=== PATIENT | male | born 1975 | race African-American/Black ===

== ENCOUNTER 2017-01-05 20:02 | Emergency (ER) | payer OTHER ==
[~2017-01-05] VITALS: Ht 185.4 cm; Wt 122.5 kg
[~2017-01-05 20:02] MED LIST: AMLODIPINE BESY10 MG PO; AMLODIPINE BESYL5 M1 PO; ANUSOL-HC25 MG RECTAL; ASA81BEC PO; ASPIRIN81 M2 PO; CLONIDINE0.1 PO; CORTISPORIN-TC10 ML OTIC; HYDROCHLOROTHIA25 M2 PO; HYDROCODONE-AP1 EAC6 PO; K-DUR10 MEQ PO; KLOR-CON 1010 MEQ PO; LABETALOL HCL100 MG PO; LISINOPRIL40 MG PO; LOSARTAN POTAS100 MG PO; METOPROLOL SUC100 MG PO; NEXIUM40 MG; PRINIVIL20 MG PO; PROTONIX 20 MG20 M1 PO; TRADJENTA5 MG PO; ZESTORETIC 20-1 EAC3 PO
[2017-01-05] MEDS ORDERED: PROTONIX 20 MG20 M1 PO (20:40)
[2017-01-05] MEDS ORDERED: ACCUNEB SO1.25 MG/1 INH (20:40)
[2017-01-05] MEDS ORDERED: BETA CAROTEN25000 IU PO (20:40)
[2017-01-05] MEDS ORDERED: TIZANIDINE HCL4 MG PO (22:13)
[2017-01-05] MEDS ORDERED: IBUPROFEN 600600 M1 PO (22:13)
[2017-01-05 22:31] LABS: POC CA IONIZED 4.4 mg/dL (4.5-5.3); POC CREATININE 1.5 mg/dL (0.6-1.3); POC POTASSIUM 3.2 mmol/L (3.5-5.1)
== END 2017-01-05 23:17 | disposition home or self-care (01) ==
LOC: ER 20:02
PROVIDERS: Nurse Practitioner
DX: J30.2 Other seasonal allergic rhinitis (principal); H69.93 Unspecified Eustachian tube disorder, bilateral; S16.1XXA Strain of muscle, fascia and tendon at neck level, initial encounter; I10 Essential (primary) hypertension; Z91.013 Allergy to seafood; Z88.0 Allergy status to penicillin; X58.XXXA Exposure to other specified factors, initial encounter; Y93.89 Activity, other specified; Y92.89 Other specified places as the place of occurrence of the external cause; Y99.8 Other external cause status